=== PATIENT | female | born 1950 | race Asian ===

== ENCOUNTER 2018-05-03 06:01 | Inpatient (IN) | payer OTHER ==
[~2018-05-03] VITALS: Ht 157.5 cm; Wt 67.1 kg
[~2018-05-03 06:01] MED LIST: ACET-8386 PO; FAMO-90 PO
[2018-05-03] MEDS ORDERED: SEVOFLURANE 250 ML BTL INH ONE (07:25)
[2018-05-03] MEDS ORDERED: hydrALAZINE 20 MG/ML VIAL ONE (07:25)
[2018-05-03] MEDS ORDERED: ONDANSETRON 4 MG/2 ML VIAL ONE (07:25)
[2018-05-03] MEDS ORDERED: KETOROLAC 30 MG/ML VIAL ONE (07:25)
[2018-05-03] MEDS ORDERED: DEXAMETHASONE 4 MG/ML VIAL ONE (07:25)
[2018-05-03] MEDS ORDERED: BUPIVACAINE-MPF/EPI 0.5% 30 ML VIAL INJ ONE (07:25)
[2018-05-03] MEDS ORDERED: PROPOFOL 200 MG/20 ML VIAL IV ONE (07:25)
[2018-05-03] MEDS ORDERED: MEPERIDINE 50 MG/ML SYR ONE (07:41)
[2018-05-03] MEDS ORDERED: fentaNYL 0.05 MG/ML VIAL ONE (07:41)
[2018-05-03] MEDS ORDERED: MIDAZOLAM 2 MG/2 ML VIAL ONE (07:41)
[2018-05-03] MEDS ORDERED: MEPERIDINE 25 MG/ML SYR IVP PRN (08:05)
[2018-05-03] MEDS ORDERED: ONDANSETRON 4 MG/2 ML VIAL IVP PRN ×2 (08:05→08:40)
[2018-05-03] MEDS ORDERED: diphenhydrAMINE 50 MG/ML VIAL IVP PRN (08:05)
[2018-05-03] MEDS ORDERED: HYDROmorphone 1 MG/ML AMP IVP PRN (08:05)
[2018-05-03] MEDS ORDERED: MORPHINE SULFATE 4 MG/ML SYR IM/IVP PRN (08:40)
[2018-05-03] MEDS ORDERED: ACETAMINOPHEN/CODEINE 300/30MG 1 TAB PO PRN (08:40)
[2018-05-03] MEDS ORDERED: LACTATED RINGERS 1,000 ML IV SCH (09:20)
--- NOTE | 2018-05-03 09:49 | NUR ---
PATIENT HAS BEEN SCREENED AND CATEGORIZED LOW NUTRITION RISK. PATIENT WILL BE SEEN WITHIN 7 DAYS OF ADMISSION. 05/09/[address]
[2018-05-03 10:30] VITALS: BP 113/60
--- NOTE | 2018-05-03 10:30 | NUR ---
RECEIVED REPORT FROM OR NURSE. PATIENT IN STABLE CONDITION. V/S STABLE. NO DISTRESS NOTED. PAIN WITHIN TOLERABLE AT THIS TIME. LUNGS CTA ON ALL LOBES. AAOX4, CALM, COOPERATIVE, SKIN COLOR APPROPRIATE TO ETHNICITY, WARM TO TOUCH. SKIN INTACT. HAS SPOT BLEEDING ON PERINEAL PAD DUE TO S/P VAGINAL HYSTERECTOMY WITH VAGINAL WAL REPAIR. ABDOMEN SOFT. ORIENTED PATIENT TO ROOM AND CALL LIGHT. FAMILY MEMBER AT BEDSIDE. REVIEWED PLAN OF CARE WITH PATIENT. PATIENT VERBALIZED UNDERSTANDING. SAFETY MEASURES IN PLACE, CALL LIGHT WITHIN REACH. WILL CONTINUE TO MONITOR.
--- NOTE | 2018-05-03 12:30 | NUR ---
PATIENT LYING DOWN IN BED SLEEPING, AROUSABLE BY VOICE. NO DISTRESS NOTED. DENIES ANY PAIN AT THIS TIME. AT BEDSIDE. CONDITION UNCHANGED. WILL CONTINUE TO MONITOR.
[2018-05-03] MEDS: LACTATED RINGERS 1,000 ML IV SCH ×3 (12:45→22:58)
--- NOTE | 2018-05-03 14:17 | NUR ---
CM NOTE INITIAL REVIEW FAXED TO [facility] [phone] LAX[facility] # [phone]
--- NOTE | 2018-05-03 15:00 | NUR ---
PATIENT SITTING IN BED WITH LUNCH TRAY IN FRONT. ABLE TO EAT A LITTLE BIT OF CLEAR LIQUID, DENIES ANY NAUSEA VOMITING. UNABLE TO URINATE BUT HAS URGES. WILL CONTINUE TO MONITOR.
[2018-05-03 16:00] VITALS: BP 98/50
--- NOTE | 2018-05-03 16:00 | NUR ---
ASSISTED PATIENT TO BEDSIDE COMMODE TO SEE IF SHE IS ABLE TO URINATE. PATIENT NOT ABLE TO URINATE AFTER 10 MIN ON BEDSIDE COMMODE. WILL NOTIFY DR. CRUZ.
--- NOTE | 2018-05-03 18:00 | NUR ---
STRAIGHT CATHERIZATION PERFORMED PER VERBAL ORDERS OF DR. CRUZ DUE TO PATIENT NOT BEING ABLE TO URINATE, JUST HAS URGES. 800 ML OUT OF STRAIGHT CATH. WILL CONTINUE TO MONITOR WITH PATIENT IF SHE IS ABLE TO URINATE AFTER STRAIGHT CATH, IF NOT, GOLDSMITH CATHETER WILL BE INSERTED PER DR. CRUZ.
--- NOTE | 2018-05-03 19:30 | NUR ---
GAVE REPORT TO [employer] ATTORNEY NURSE FOR CONTINUITY OF CARE. PATIENT IN STABLE CONDITION.
--- NOTE | 2018-05-03 19:31 | NUR ---
RECD. RESTING IN BED, AWAKE, A/OX4. RESPIRATION EVEN AND UNLABORED. IV OF LR AT 120 ML/HR INFUSING, LEFT FOREARM G20. CHECKED PADS, WITH MINIMAL SANGUINOUS DISCHARGE FROM THE VAGINA. INSTRUCTED TO CALL NURSE WHEN WITH URGE TO VOID, FOR ASSISTANCE TO THE BEDSIDE COMMODE. PLAN OF CARE FOR THE SHIFT DISCUSSED. VERBALIZED UNDERSTANDING. DENIES PAIN 0/10.
--- NOTE | 2018-05-03 20:00 | NUR ---
Patient's Plan of Care was discussed and reviewed with MAYRA: EVELYN
--- NOTE | 2018-05-03 20:30 | NUR ---
INSTRUCTED TO ALTERNATELY TURN TO THE SIDES AND NOT ALWAYS LYING ON HIS BACK. EXPLAINED THE IMPORTANCE BUT SEEMS RELUCTANT TO DO IT.
[2018-05-04] VITALS: BP 102/57
[2018-05-04] MEDS: LACTATED RINGERS 1,000 ML IV SCH (00:44)
--- NOTE | 2018-05-04 01:00 | NUR ---
SLEEPING COMFORTABLY IN BED.
--- NOTE | 2018-05-04 01:30 | NUR ---
GLASS OF WATER GIVEN BUT DRINK ONLY ONE-HALF. ENCOURAGED TO DRINK MORE BUT REFUSED. ASSISTED TO SIT ON THE BEDSIDE COMMODE TO BE ABLE TO VOID. OPEN THE FAUCET, STILL UNABLE TO VOID. WENT BACK O BED. STATED SHE WAS NOT ABLE TO VOID.
[2018-05-04 04:30] VITALS: BP 115/61
--- NOTE | 2018-05-04 04:30 | NUR ---
WATER IN A CUP GIVEN. SIT ON THE BSC TO VOID. FEELS LIKE IF SHE WANTS TO VOID.
[2018-05-04 06:16] LABS: BASOPHILS # (AUTO) 0.1 K/uL (0.00-0.22); BASOPHILS % (AUTO) 0.8 % (0.0-2.0); EOSINOPHILS % (AUTO) 0.2 % (0.0-4.0); HEMATOCRIT 35.7 % (36-48); HEMOGLOBIN 11.6 g/dL (12.0-16.0); LYMPHOCYTES % (AUTO) 7.5 % (20.5-51.1); MEAN CORPUSCULAR HEMOGLOBIN 28 pg (27-31); MEAN CORPUSCULAR HGB CONC 33 g/dL (33-37); MEAN CORPUSCULAR VOLUME 86.6 fL (80-94); MONOCYTES # (AUTO) 0.8 K/uL (0.8-1.0); MONOCYTES % (AUTO) 6.3 % (1.7-9.3); NEUTROPHILS # (AUTO) 11.3 K/uL (1.8-7.7); NEUTROPHILS % (AUTO) 85.2 % (42.2-75.2); PLATELET COUNT (AUTO) 146 K/uL (140-450); RED BLOOD CELL COUNT(AUTO) 4.12 MIL/uL (4.20-5.40); RED CELL DISTRIBUTION WIDTH 12.6 % (11.6-13.7); WHITE BLOOD COUNT (AUTO) 13.3 K/uL (4.8-10.8)
--- NOTE | 2018-05-04 07:13 | NUR ---
ASSUMED CONTINUITY OF CARE. NO SIGNS AND SYMPTOMS OF ACUTE DISTRESS NOTED. INITIAL ASSESSMENT DONE. KEEP COMFORTABLE ON BED. EXPLAINED DIAGNOSIS, PLAN OF CARE, PAIN MANAGEMENT TEACHING, GOLDSMITH CATHETER CARE, USE OF CALL LIGHT/BED/TV/BATHROOM. VERBALIZED UNDERSTANDING. CALL LIGHT WITHIN REACH.
--- NOTE | 2018-05-04 07:45 | NUR ---
Patient's Plan of Care was discussed and reviewed with DYE HOUSE HAND: LITTLE ALAN
[2018-05-04 08:00] VITALS: BP 128/63
[2018-05-04 12:00] VITALS: BP 141/59
--- NOTE | 2018-05-04 17:45 | NUR ---
DR. CRUZ CAME AND SPOKE TO PT. AT BEDSIDE.
--- NOTE | 2018-05-04 17:53 | NUR ---
D/C GOLDSMITH CATHETER PER MD ORDER WITH ASSISTANCE FROM SUSANNA RIOS. TOLERATED WELL. NO C/O PAIN.
--- NOTE | 2018-05-04 19:16 | NUR ---
BEDSIDE REPORT GIVEN TO SAL RIOS. IN STABLE CONDITION. ALSO ENDORSED TO CALL DR. CRUZ IF PT. VOID.
--- NOTE | 2018-05-04 19:20 | NUR ---
RECEIVED PATIENT AWAKE SITTING ON BEDSIDE CHAIR. PATIENT WAS AA0X4, AMBULATORY. DISCUSS PLAN OF CARE TO PATIENT AND VERBALIZED UNDERSTANDING. CALL LIGHT WITHIN REACH. WILL CONTINUE TO MONITOR.
--- NOTE | 2018-05-04 21:00 | NUR ---
STILL PATIENT NOT VOIDING AT THIS TIME. EXPLAINED TO TURN ON THE FAUCET TO AID HER FOR URINATION AND VERBALIZED UNDERSTANDING. NO S/S OF DISTRESS NOTED AT THIS TIME. CALL LIGHT WITHIN REACH. WILL CONTINUE TO MONITOR.
--- NOTE | 2018-05-04 23:00 | NUR ---
CHECKED PATIENT AND STILL NOT ABLE TO URINATE. DENIES PAIN OR ABDOMINAL DISTENTION. ALL ALTERNATIVES MEASURES DONE . NO S/S OF DISTRESS NOTED. WILL CONTINUE TO MONITOR.
[2018-05-05] VITALS: BP 135/73
--- NOTE | 2018-05-05 01:00 | NUR ---
SEEN PATIENT ASLEEP COMFORTABLE ON BED. STILL NO URINE OUTPUT AT THIS TIME. NO S/S OF DISTRESS NOTED. WILL CONTINUE TO MONITOR.
--- NOTE | 2018-05-05 03:23 | NUR ---
CALLED DR. CRUZ BUT UNABLE TO REACH. VOICEMAIL BOX IS FULL. WANT TO REPORT THAT PATIENT STILL NOT VOIDING AT THIS TIME. NO COMPLAIN OF PAIN . NO SIGN OF DISTRESS NOTED. WILL CALL BACK LATER.
--- NOTE | 2018-05-05 04:00 | NUR ---
CALLED DR. CRUZ AND ORDERED TO INSERT GOLDSMITH CATHETER. JIMMIE MCCOY INSERTED THE CATHETER DRAINING YELLOWISH URINE. WILL CONTINUE TO MONITOR.
--- NOTE | 2018-05-05 07:10 | NUR ---
ENDORSEMENT GIVEN TO AM SHIFT NURSE AT BEDSIDE FOR CONTINUITY OF CARE. PATIENT IN STABLE CONDITION.
--- NOTE | 2018-05-05 07:30 | NUR ---
RECEIVED PT AAOX4. NO SOB NOTED. NO C/O PAIN AT THIS TIME. IV TO LT HAND PATENT AND INTACT. CHEST CLEAR. ABDOMEN SOFT, BOWEL SOUNDS PRESENT. WITH GOLDSMITH DRAINING CLEAR AMY URINE IN SMALL AMOUNTS. WITH SCD'S IN PLACE. INTRUCTED PT TO CALL FOR ASSISTANCE, CALL LIGHT WITHIN REACH. PT VERBALIZED UNDERSTANDING.
[2018-05-05 08:00] VITALS: BP 121/53
--- NOTE | 2018-05-05 08:55 | NUR ---
PT TOLERATED BREAKFAST, NO NAUSEA AND VOMITING NOTED. CONSUMED 75% OF FOOD SERVED.
--- NOTE | 2018-05-05 10:15 | NUR ---
PT AMBULATING AROUND THE ROOM. PT STATED SHE'S PASSING GAS.
--- NOTE | 2018-05-05 11:30 | NUR ---
GOLDSMITH CATHETER DRAINAGE BAG CHANGED TO A LEG BAG. INSTRUCTIONS GIVEN TO PT, VERBALIZED UNDERSTANDING. PT ABLE TO PERFORM A RETURN DEMONSTRATION ON HOW TO CHANGE THE LEG BAG TO A BIGGER BAG FOR NIGHT TIME USE AND ALSO HOW TO DRAIN AND MEASURE URINE PROPERLY. EXTRA LEG BAG AND OTHER SUPPLIES RELATED TO GOLDSMITH CATHETER MANAGEMENT GIVEN TO PT.
--- NOTE | 2018-05-05 12:00 | NUR ---
DISCHARGE INSTRUCTION GIVEN TO PT WHICH VERBALIZED FULL UNDERSTANDING OF THE INSTRUCTIONS AND TEACHINGS GIVEN. IV REMOVED, CANNULA TIP INTACT.
--- NOTE | 2018-05-05 12:40 | NUR ---
PT WHEELED OUT TO THE PARKING LOT IN STABLE CONDITION. NO C/O PAIN AT THIS TIME. ARM BANDS REMOVED. PT IS DISCHARGED HOME WITH .
--- NOTE | 2018-05-05 13:30 | NUR ---
CM NOTE concurrent REVIEW FAXED TO [facility] [phone] [facility] # [phone]
== END 2018-05-05 12:40 | disposition home or self-care (01) | DRG 513 ==
LOC: MMU 06:01 → MTU 10:25
PROVIDERS: ADMIT Obstetrics & Gynecology; ATTEND Obstetrics & Gynecology
PROC: 0JQC0ZZ Repair Pelvic Region Subcutaneous Tissue and Fascia, Open Approach (ICD-10-PCS; 2018-05-03)
PROC: 0JQC0ZZ Repair Pelvic Region Subcutaneous Tissue and Fascia, Open Approach (ICD-10-PCS; 2018-05-03)
PROC: 0UT97ZZ Resection of Uterus, Via Natural or Artificial Opening (ICD-10-PCS; principal; 2018-05-03 07:30)
PROC: 0TVD7ZZ Restriction of Urethra, Via Natural or Artificial Opening (ICD-10-PCS; 2018-05-03 07:30)
DX: N81.4 Uterovaginal prolapse, unspecified (principal); N39.3 Stress incontinence (female) (male); N84.0 Polyp of corpus uteri
CPT/HCPCS: 36415; 85025; 86886; 86900; 86901; 87081; J0360; J0690; J1100; J1885; J2175; J2250; J2405; J2704; J3010; J3490; J7030; J7060; J7120